=== PATIENT | male | born 2005 | race Caucasian/White ===

== ENCOUNTER 2024-05-14 16:14 | Emergency (ER) | payer BC ==
[~2024-05-14] VITALS: Ht 188 cm; Wt 84.1 kg
[2024-05-14 16:20] VITALS: BP 135/584; TEMP 98.4
[2024-05-14] MEDS ORDERED: PRIL40 PO (16:23)
[2024-05-14 16:48] LABS: BASO # 0.1 K/mm3 (0.0-0.2); BASO % 0.5 % (0.0-2.0); EOS # 0.2 K/mm3 (0.0-0.7); EOS % 1.4 % (0.0-4.0); GRAN # 7.1 K/mm3 (1.4-6.5); GRAN % 63.2 % (42.2-75.2); HEMATOCRIT 42.4 % (42.0-52.0); HEMOGLOBIN 14.5 g/dl (13.5-18.0); LYMPH # 2.5 K/mm3 (1.2-3.4); LYMPH % 22.6 % (20.0-51.0); MEAN CELL VOLUME 91 fl (80.0-100.0); MEAN CORPUSCULAR HEMOGLOBIN 31 pg (27-31); MEAN CORPUSCULAR HGB CONC 34 g/dl (33.0-37.0); MEAN PLATELET VOLUME 9.3 fl (7.4-10.4); MONO # 1.3 K/mm3 (0.1-0.6); PLATELET COUNT 260 K/mm3 (130-400); RED BLOOD COUNT 4.67 M/mm3 (4.20-5.60); REDCELL DISTRIBUTION WIDTH-CV 11.4 % (11.5-14.5)
[2024-05-14] MEDS ORDERED: Iohexol 300 - 100 ML VIAL IV ONE (16:48)
[2024-05-14] MEDS ORDERED: NS 100 ML IV SCH (16:55)
[2024-05-14 17:02] LABS: BILIRUBIN,TOTAL 0.4 mg/dL (0.2-1.2); CALCIUM 9.5 mg/dL (8.4-10.2); CREATININE, serum 1.05 mg/dL (0.72-1.25); TOTAL PROTEIN 7.7 g/dl (6.2-8.1)
[2024-05-14] MEDS ORDERED: ZITHROMAX Z PA250 MG PO (17:37)
[2024-05-14 18:22] VITALS: PULSE 67
== END 2024-05-14 18:22 | disposition home or self-care (01) ==
LOC: COL.ER 16:14
PROVIDERS: Physician Assistant
DX: J98.4 Other disorders of lung (principal)
CPT/HCPCS: Q9967